=== PATIENT | male | born 1990 | race Caucasian/White ===

== ENCOUNTER → 2019-07-26 10:02 | Outpatient (CLI) | payer OTHER, SELFPAY ==
--- NOTE | ~2019-07-26 | US_ITS ---
US abdomen complete EXAMINATION: US Abdomen Complete INDICATION: Generalized abdomen pain PROCEDURE: Realtime High Resolution abdomen ultrasound. COMPARISON: No prior studies for comparison FINDINGS: Gallbladder within normal limits. No gallstones, pericholecystic fluid, gallbladder wall t hickening or biliary dilatation. Common bile duct measures 3 mm. Liver echotexture within normal limits without focal mass. Pancreas within normal limits. Pancreati c tail is obscured by bowel gas. Spleen is unremarkeable. Renal echotexture is within normal limits bilaterally without hydronephrosis, contour deforming mass or renal stone. Right kidney measures 10.2 cm. Left kidney measures 11.4 cm. Visualized aspects of the aorta are within normal limits. IVC is not visualized. 2. Portal vein is patent. No sonographic Whitley's sign indicated by the technologist. IMPRESSION: 1: Normal abdominal ultrasound. Reviewed, dictated and finalized at location A.
--- NOTE | ~2019-07-26 | XR_ITS ---
EXAMINATION: XR UGIAC wo kub DATE: 07/26/2019 11:05 INDICATION: Periumbilical burning sensation with spicy foods TECHNIQUE: The patient drank thick barium, gas-producing crystals, and thin barium. Conventional supi ne abdomen radiographs and fluoroscopy of the esophagus, stomach, and proximal small bowel were perfo rmed. Fluoroscopy exposure time was 1.7 minutes. The DAP for this procedure was 12.45 Gycm2. COMPARISON: None. FINDINGS: There is no mass or stricture of the esophagus. Esophageal motility is normal. There is no hiatal hernia. There was no gastroesophageal reflux with provocative maneuvers. The stomach and prox imal small bowel show normal folding patterns. IMPRESSION: 1. Unremarkable examination. Reviewed, dictated and finalized at location B.
== END ==
PROVIDERS: PCP Emergency Medicine; Visit Provider Emergency Medicine
DX: R10.9 Unspecified abdominal pain (principal)
CPT/HCPCS: 74246; 76700